=== PATIENT | female | born 1980 | race American Indian/Alaskan Native ===

== ENCOUNTER 2018-07-25 18:32 | Emergency (ER) | payer MEDICAID, OTHER ==
[2018-07-25] MEDS ORDERED: NACL 0.9% 1000 ML 1,000 ML IV ONE (19:56)
--- NOTE | 2018-07-25 20:00 | Emergency Department Report ---
HPI - General Chief Complaint: Weakness Time Seen by Provider: 07/25/18 19:47 - HPI HPI: Room 3 The patient is a 29-year-old female presenting with a chief complaint weakness. Patient states she donated plasma today at approximately 15:00. Afterwards she states she wouldn't eat some food and while in a store walking she developed jaw pain nausea and vomiting. The patient states she began to feel weak and faint so she laid down on the ground but did not improve. Patient states she felt clammy with blurred vision so EMS was called. Patient states she feels better now. Location: [See above] Duration: [See above] Quality: Weakness Severity: Moderate Modifying factors: [see above] Context: [see above] Mode of transportation: [not driving] ED Past Medical Hx - Past Medical History Previous Medical History?: Yes Hx Hypertension: Yes - Surgical History Past Surgical History?: Yes Additional Surgical History: colposcory test; scalp surgery d/t bump filled fluid-benign - Family History Family history: no significant - Social History Smoking Status: Never Smoker Substance Use Type: None (denies illicit drug use) ED Review of Systems ROS: Stated complaint: SYNCOPE/N/V Other details as noted in HPI Constitutional: diaphoresis, weakness Eyes: vision change Respiratory: no symptoms reported Cardiovascular: denies: chest pain Endocrine: no symptoms reported Gastrointestinal: nausea, vomiting Genitourinary: denies: dysuria Musculoskeletal: denies: back pain Neurological: denies: headache Physical Exam - Physical Exam Vital Signs: Vital Signs 07/25/18 07/25/18 19:11 19:15 Temperature 98.2 F 98.2 F Pulse Rate 81 81 Respiratory 18 18 Rate Blood Pressure 139/96 Blood Pressure 139/96 139/96 [Left] O2 Sat by Pulse 99 99 Oximetry Physical Exam: GENERAL: The patient is well-developed well-nourished female lying on stretcher not appearing to be in acute distress. [] HEENT: Normocephalic. Atraumatic. Extraocular motions are intact. Patient has moist mucous membranes. NECK: Supple. No meningitic signs are noted. Trachea midline CHEST/LUNGS: Clear to auscultation. There is no respiratory distress noted. HEART/CARDIOVASCULAR: Regular. There is no tachycardia. There is no gallop rub or murmur. ABDOMEN: Abdomen is soft, nontender. Patient has normal bowel sounds. There is no abdominal distention. SKIN: There is no rash. There is no edema. There is no diaphoresis. NEURO: The patient is awake, alert, and oriented. The patient is cooperative. The patient has no focal neurologic deficits. The patient has normal speech. Cranial nerves II through XII grossly intact, no drift MUSCULOSKELETAL: There is no evidence of acute injury. ED Course Vital Signs 07/25/18 07/25/18 19:11 19:15 Temperature 98.2 F 98.2 F Pulse Rate 81 81 Respiratory 18 18 Rate Blood Pressure 139/96 Blood Pressure 139/96 139/96 [Left] O2 Sat by Pulse 99 99 Oximetry - Reevaluation(s) Reevaluation #1: 07/25/18 21:48 Patient remains asymptomatic ED Medical Decision Making - Lab Data Result diagrams: 07/25/18 21:01 07/25/18 20:01 - EKG Data -: EKG Interpreted by Ut EKG shows normal: sinus rhythm Rate: normal - EKG Data When compared to previous EKG there are: previous EKG unavailable Interpretation: other (no ischemic changes seen) - Differential Diagnosis orthostasis, symptomatic anemia, dehydration Critical care attestation.: If time is entered above; I have spent that time in minutes in the direct care of this critically ill patient, excluding procedure time. ED Disposition Clinical Impression: Dehydration Disposition: DC-01 TO HOME OR SELFCARE Is pt being admited?: No Does the pt Need Aspirin: No Condition: Stable Instructions: Dehydration (ED) Additional Instructions: Return to the emergency department immediately should you develop worsening symptoms, fever, inability to tolerate food or liquid or any other concerns. Time of Disposition: 21:48
[2018-07-25 20:38] LABS: Creatine Kinase MB 1.1 ng/mL (0.0-4.0)
[2018-07-25 20:41] LABS: BUN/Creatinine Ratio 13; Blood Urea Nitrogen 10 mg/dL (7-17); Calcium 9.1 mg/dL (8.4-10.2); Hemolysis Index 117
[2018-07-25 20:48] LABS: Free T4 (Free Thyroxine) 1.01 ng/dL (0.76-1.46)
[2018-07-25 20:53] LABS: INR TNR (0.87-1.13); Partial Thromboplastin Time TNR Sec. (24.2-36.6)
[2018-07-25 20:54] LABS: Hemoglobin TNR gm/dl (10.1-14.3); Red Blood Count TNR M/mm3 (3.65-5.03)
[2018-07-25 20:55] LABS: Hematocrit TNR % (30.3-42.9)
[2018-07-25 20:56] LABS: Mean Corpuscular HGB Conc TNR % (30-34); Mean Corpuscular Volume TNR fl (79-97)
[2018-07-25 20:58] LABS: Platelet Count TNR K/mm3 (140-440); Red Cell Distribution Width TNR % (13.2-15.2)
[2018-07-25 20:59] LABS: Lymphocytes % (Auto) TNR % (13.4-35.0); Mean Platelet Volume TNR fl (6-12)
[2018-07-25 21:01] LABS: Basophils % (Auto) TNR % (0.0-1.8); Eosinophils # (Auto) TNR K/mm3 (0.0-0.4); Eosinophils % (Auto) TNR % (0.0-4.3); Lymphocytes # (Auto) TNR K/mm3 (1.2-5.4); Monocytes # (Auto) TNR K/mm3 (0.0-0.8); Monocytes % (Auto) TNR % (0.0-7.3)
[2018-07-25 21:02] LABS: Basophils # (Auto) TNR K/mm3 (0.0-0.1)
[2018-07-25 21:09] LABS: Basophils # (Auto) 0.1 K/mm3 (0.0-0.1); Basophils % (Auto) 0.6 % (0.0-1.8); Eosinophils % (Auto) 0.2 % (0.0-4.3); Hemoglobin 15.6 gm/dl (10.1-14.3); Lymphocytes % (Auto) 10.7 % (13.4-35.0); Mean Corpuscular HGB Conc 33 % (30-34); Mean Corpuscular Volume 92 fl (79-97); Monocytes # (Auto) 0.5 K/mm3 (0.0-0.8); Monocytes % (Auto) 5.9 % (0.0-7.3); Platelet Count 329 K/mm3 (140-440); Red Blood Count 5.09 M/mm3 (3.65-5.03); Red Cell Distribution Width 13.4 % (13.2-15.2)
[2018-07-25 21:35] VITALS: BP 139/103
== END 2018-07-25 22:11 | disposition home or self-care (01) ==
LOC: ED 18:32
DX: E86.0 Dehydration (principal); I10 Essential (primary) hypertension
CPT/HCPCS: 36415; 80048; 82550; 82553; 84439; 84443; 84484; 84703; 85025; 93005; 93010; 96360; 96361; 99284; J7030